=== PATIENT | male | born 1945 | race Caucasian/White ===

== ENCOUNTER 2020-07-05 10:32 | Emergency (ER) | payer MEDICARE ==
[~2020-07-05] VITALS: Ht 180.3 cm; Wt 99.8 kg
[~2020-07-05 10:32] MED LIST: ASPI325; ASPI325 PO; ATOR20; BENZ100A PO; BUPR150ER; BUPR150ER PO; BUPR150T2; BUPR75 PO; CEPH500 PO; CLOP75 PO; DOXY100 PO; FENO67 PO; GEMF600 PO; ISOMON60ER PO; METO50ER PO; MINO50; OMEP10ER; OMEP20ER; OXYACE5T PO; PRAV20 PO; PROM25 PO; ROSU10TA; ROSU5 PO; TAMS.4ER PO; TRICOR
[2020-07-05] MEDS ORDERED: Aspir 8181 MG PO (10:49)
[2020-07-05 11:13] LABS: BASOPHILS ABSOLUTE AUTO 0.04 K/mm3 (0.00-0.23); BASOPHILS PERCENT AUTO 1 % (0-2); EOSINOPHILS ABSOLUTE AUTO 0.08 K/mm3 (0.00-0.68); EOSINOPHILS PERCENT AUTO 1 % (0-6); Hematocrit 39.2 % (37.0-53.0); IMMATURE GRAN ABSOLUTE AUTO 0.03 K/mm3 (0.00-0.10); IMMATURE GRAN PERCENT AUTO 1 % (0-1); LYMPHOCYTES ABSOLUTE AUTO 0.82 K/mm3 (0.84-5.20); LYMPHOCYTES PERCENT AUTO 13 % (21-46); MONOCYTES ABSOLUTE AUTO 0.47 K/mm3 (0.16-1.47); MONOCYTES PERCENT AUTO 7 % (4-13); Mean Corpuscular HGB 28.8 pg (26.0-34.0); Mean Corpuscular HGB Conc 33.2 g/dL (31.5-36.5); Mean Corpuscular Volume 87 fL (80-100); Mean Platelet Volume 10.8 fL (9.1-12.4); NEUTROPHILS ABSOLUTE AUTO 4.95 K/mm3 (1.96-9.15); NEUTROPHILS PERCENT AUTO 77 % (41-73); Platelet Count 207 K/mm3 (150-400); RDW Coefficient Variation 13.2 % (11.7-14.2); RDW Standard Deviation 41.2 fL (35.1-46.3); Red Blood Cell Count 4.52 M/mm3 (4.30-5.90); White Blood Cell Count 6.39 K/mm3 (4.00-11.30)
[2020-07-05 11:33] LABS: Alanine Aminotransfer (ALT/SGP 23 U/L (12-78); Albumin, Blood 4.1 g/dL (3.4-5.0); Albumin/Globulin Ratio 1.5 (0.8-1.8); Alk Phos 56 U/L (50-136); Anion Gap 4 mmol/L (6-16); Aspartate Aminotrans (AST/SGOT 15 U/L (12-37); Bilirubin, Total 0.4 mg/dL (0.1-1.0); Blood Urea Nitrogen 23 mg/dL (8-24); CO2, Blood 25 mmol/L (21-32); Calcium, Blood 8.8 mg/dL (8.5-10.1); Chloride, Blood 108 mmol/L (98-108); Creatinine, Blood 0.85 mg/dL (0.60-1.20); Globulin, Blood 2.7 g/dL (2.2-4.0); Glomerular Filtration Rate >60 (60-); Glucose, Blood 135 mg/dL (70-99); Potassium, Blood 4.4 mmol/L (3.5-5.5); Sodium, Blood 137 mmol/L (136-145); Total Protein, Blood 6.8 g/dL (6.4-8.2)
== END 2020-07-05 12:13 | disposition home or self-care (01) ==
LOC: ER 10:32
PROVIDERS: Emergency Medicine
DX: R42 Dizziness and giddiness (principal); Z79.82 Long term (current) use of aspirin; Z88.0 Allergy status to penicillin; Z88.2 Allergy status to sulfonamides; Z95.1 Presence of aortocoronary bypass graft; Z87.891 Personal history of nicotine dependence; Z79.899 Other long term (current) drug therapy
CPT/HCPCS: 36415; 80053; 85025; 93005; 93010; 99285-25

== ENCOUNTER 2021-05-08 05:05 | Emergency (ER) | payer MEDICARE ==
[~2021-05-08] VITALS: Ht 177.8 cm; Wt 105.2 kg
[~2021-05-08 05:05] MED LIST changes: +Aspir 8181 MG PO
[2021-05-08] MEDS ORDERED: MUPIROCIN1 G1 TOP (07:26)
== END 2021-05-08 07:38 | disposition home or self-care (01) ==
LOC: ER 05:05
DX: S70.361A Insect bite (nonvenomous), right thigh, initial encounter (principal); W57.XXXA Bitten or stung by nonvenomous insect and other nonvenomous arthropods, initial encounter; Z87.891 Personal history of nicotine dependence; Z88.2 Allergy status to sulfonamides; Z79.899 Other long term (current) drug therapy; Z79.82 Long term (current) use of aspirin
CPT/HCPCS: 10120; 99282-25; A9270

== ENCOUNTER → 2022-07-06 | Outpatient (CLI) | payer MEDICARE ==
[~2022-07-06] MED LIST changes: +MUPIROCIN1 G1 TOP
== END | disposition home or self-care (01) ==
LOC: PLD 10:41 → LAB SHORT 10:41
DX: D48.5 Neoplasm of uncertain behavior of skin (principal)
CPT/HCPCS: 88305

== ENCOUNTER → 2022-08-30 | Outpatient (CLI) | payer MEDICARE | END | disposition home or self-care (01) | LOC: LAB 14:00 → LAB SHORT 14:00 | DX: L08.0 Pyoderma (principal) | CPT/HCPCS: 87070; 87205 ==

== ENCOUNTER → 2023-03-16 | Outpatient (CLI) | payer MEDICARE | END | disposition home or self-care (01) | LOC: LAB SHORT 12:11 → PLD 12:11 | DX: D04.4 Carcinoma in situ of skin of scalp and neck (principal) | CPT/HCPCS: 88305 ==